=== PATIENT | female | born 1990 | race African-American/Black ===

== ENCOUNTER 2017-01-18 19:58 | Emergency (ER) | payer OTHER ==
[~2017-01-18 19:58] MED LIST: [UNRECOGNIZED DRUG - REMARK]
== END 2017-01-18 20:14 | disposition home or self-care (01) ==
LOC: ER 19:58
DX: K08.89 Other specified disorders of teeth and supporting structures (principal); F17.200 Nicotine dependence, unspecified, uncomplicated
CPT/HCPCS: 99284